=== PATIENT | female | born 1955 | race Caucasian/White ===

== ENCOUNTER → 2021-05-12 | Outpatient (CLI) | payer SELFPAY ==
[2017-07-25 15:00] VITALS: BP 147/90
[~2021-05-12] MED LIST: ALBU2.5V8 INH; ASPI-482 PO; ATOR20TA58 PO; CYCL10TA2 PO; GLYB5TAB3 PO; HYDR12.575 PO; LEVO88TA70 PO; LISI20TA18 PO; OMEG1CAP6 PO; ZOLP5TAB PO
--- NOTE | 2021-05-12 13:33 | KCIC ---
EXAM: Chest, 2 views. HISTORY: Cough. COMPARISON: None. FINDINGS: 2 views of the chest are obtained. There is bilateral infrahilar interstitial opacity likel y due to atelectasis or scarring. There is no consolidation, pleural effusion or pneumothorax. The he art is normal in size. There are calcified granulomas. IMPRESSION: Chronic appearing interstitial changes. No acute pulmonary finding. Electronically signed by: Florence Gyatan MD (05/12/2021 1:31 PM) [id number]
== END ==
LOC: KCIC 12:47
PROVIDERS: ATTEND Family Medicine
DX: J84.10 Pulmonary fibrosis, unspecified (principal); J98.4 Other disorders of lung
CPT/HCPCS: 71046